=== PATIENT | female | born 1985 | race Asian ===

== ENCOUNTER 2019-12-16 16:43 | Emergency (ER) | payer BC, SELFPAY ==
[2019-12-16 17:01] VITALS: BP 131/62; PULSE 107; RESP 16; TEMP 37.1; O2SAT 99
--- NOTE | 2019-12-16 17:19 | ED.EAR ---
HPI - Ear Problem General Chief complaint: Ear Stated complaint: earpain (L) Time Seen by Provider: 12/16/19 17:00 Source: patient Mode of arrival: ambulatory Limitations: no limitations History of Present Illness HPI Narrative: Patient presents today complaining of left ear pain since this morning. Denies any additional symptoms to include fever, sore throat, cough. Currently rates her pain 8/10. She instilled some peroxide earlier this morning without relief. She has not tried any [id number] medications for pain prior to arrival. MD Complaint: ear pain Related Data Home Medications Medication Instructions Recorded Confirmed No Home Medications 12/16/19 12/16/19 Allergies Allergy/AdvReac Type Severity Reaction Status Date / Time Penicillins Allergy Intermediate Rash Verified 12/16/19 16:55 Review of Systems Review of Systems: Narrative: CONSTITUTIONAL: Denies body aches, fever, chills, or sweats. EYES: Denies visual changes, redness, or discharge. ENT: Denies rhinorrhea, congestion, sore throat. + Left ear pain CARDIOVASCULAR: Denies chest pain, palpitations, or edema. RESPIRATORY: Denies cough or dyspnea. GASTROINTESTINAL: Denies abdominal pain, nausea, vomiting, or diarrhea. GENITOURINARY: Denies dysuria or hematuria. SKIN: Denies rash, itching, or wounds. MUSCULOSKELETAL: Denies back pain, joint pain, or myalgia. NEUROLOGIC: Denies headache, numbness, tingling, or weakness. PSYCH: Denies depression or anxiety. PMFSH Social History Social History Gender identity (if verbalized by the patient): Female Comments At time of signature, I have reviewed and agree with nursing past medical, surgical, social and family history unless otherwise noted. Please see nursing chart for further information. There is no relevant family history pertinent to the presenting complaint Exam Narrative: Exam Narrative: GENERAL: Well-appearing, well-nourished, and in no acute distress. HEAD: Normocephalic, atraumatic. EYES: EOMI. No redness or drainage. Conjunctivae normal. ENT: Mucous membranes pink and moist. Nares clear. No rhinorrhea. Right TM and canal normal. Left TM occluded by cerumen impaction. See procedure note. Throat normal. Uvula midline. NECK: Normal AROM. Supple. No lymphadenopathy. CHEST: No respiratory distress. Clear to auscultation. HEART: Regular rate and rhythm. No murmur appreciated. Normal peripheral pulses. EXTREMITIES: Normal range of motion. No edema. SKIN: Warm, dry, no rash. Capillary refill normal. Normal skin turgor. NEURO: No focal deficits. Alert and oriented x3. Gait steady. PSYCH: Normal affect. No signs of depression or anxiety. Course Course Emergency Course: Patient had some immediate relief of pain once wax was removed. Vital Signs Vital signs: Vital Signs Temperature 98.8 F 12/16/19 17:01 Pulse Rate 107 H 12/16/19 17:01 Respiratory Rate 16 12/16/19 17:01 Blood Pressure 131/62 12/16/19 17:01 Pulse Oximetry 99 12/16/19 17:01 Temperature 98.8 F 12/16/19 17:01 Pulse Rate 107 H 12/16/19 17:01 Respiratory Rate 16 12/16/19 17:01 Blood Pressure 131/62 12/16/19 17:01 Pulse Oximetry 99 12/16/19 17:01 Reviewed. Pt has been instructed to follow up with her PCP regarding her elevated blood pressure today. Procedures Ear Wax Removal Left Ear: Ear Wax Removal Date: 12/16/19 Ear Wax Removal Time: 17:25 Cerumenolytic Used: other (Hydrogen peroxide) Results: Re-examined: cerumen removed completely TM Examination: TM(s) intact, normal appearance Patient Tolerated Procedure: well Complications: no problems Technique: ear canal irrigated and ear canal curetted Medical Decision Making Differential Diagnosis Differential Diagnosis: Otitis media, otitis externa, ruptured TM, serous otitis, eustachian tube dysfunction, cerumen impaction Vital Signs Vital Signs: Vital Signs Temperature 98.8
== END 2019-12-16 17:45 | disposition home or self-care (01) ==
PROVIDERS: Emergency Provider Nurse Practitioner
DX: H61.22 Impacted cerumen, left ear (principal)
CPT/HCPCS: 69210; 99212; G0463

== ENCOUNTER 2020-11-01 01:32 | Emergency (ER) | payer BC, SELFPAY ==
--- NOTE | ~2020-11-01 | XR_ITS ---
EXAMINATION: XR lumbar spine 2-3V DATE: 11/01/2020 02:27 INDICATION: Low back pain post back injury TECHNIQUE: Anteroposterior and lateral views of the lumbar spine, and cone-down lateral view of the l umbosacral junction were obtained. COMPARISON: None. FINDINGS: Minimal lumbar levocurvature. Sagittal alignment is normal. Vertebral body and disc heights are татьяна l. Mild lower lumbar facet osteoarthritis. Sacrum and bilateral sacral iliac joints are normal. IMPRESSION: 1. Minimal lumbar levocurvature with mild lower lumbar facet osteoarthritis. Reviewed, dictated and finalized at location A.
[2020-11-01 01:36] VITALS: BP 112/73; PULSE 73; RESP 16; TEMP 36.2; O2SAT 100
[2020-11-01 03:31] VITALS: BP 105/70; PULSE 53; O2SAT 97
[2020-11-01] MEDS: KETOROLAC 30 MG/ML VIAL (*BKC) IM (03:48)
[2020-11-01] MEDS: HYDROmorphone HCL INJ (*CRX) 1 MG/ML SYR IM (03:50)
[2020-11-01] MEDS: diazePAM INJ (*CRX) 10 MG/2 ML SYRINGE 5 MG IM (03:51)
--- NOTE | 2020-11-01 04:09 | ED.GENADULT ---
HPI - General Adult General Chief complaint: Back Pain/Injury Stated complaint: back pain Time Seen by Provider: 11/01/20 03:22 History of Present Illness HPI narrative: Patient 34-year-old female presents the emergency department with chief complaint of back pain. Patient reports she was lifting weights and started having pain in her back. The patient states that the spasmodic type pain feels like a spasm in the muscles of her back the patient reports that it worsened by movement and improved with rest. Patient denies fever denies dysuria denies sharp pain radiating to the abdomen. Patient denies history of kidney stones Related Data Allergies Allergy/AdvReac Type Severity Reaction Status Date / Time Penicillins Allergy Intermediate Rash Verified 11/01/20 03:27 Review of Systems Review of Systems: A 10 system review of systems was completed on the patient and is negative except for what is stated in the HPI. Nursing and ancillary documentation was reviewed. [facility] Social History Social History Gender identity (if verbalized by the patient): Female Exam Narrative: GENERAL: Well-appearing, well-nourished, and in no acute distress. HEAD: Normocephalic, atraumatic. EYES: PERRLA and EOMI. ENT: Nares clear, no rhinorrhea or epistaxis. Mucous membranes moist. NECK: Supple. CHEST: Clear to auscultation. No respiratory distress. HEART: Regular rate and rhythm. No murmur heard. Normal peripheral pulses. ABDOMEN: Soft, nontender, nondistended, normal active bowel sounds. Back: There is tenderness to palpation in the paraspinous muscles in the midline of the lumbar and low thoracic region of the spine EXTREMITIES: Normal range of motion. No edema. SKIN: Warm, dry, no rash. NEURO: No focal deficits. Alert and oriented x3. PSYCH: Normal mood and affect. Course Course Emergency Course: Plain film x-ray showed no evidence of fracture Vital Signs Vital signs: Vital Signs Temperature 36.2 C L 11/01/20 01:36 Pulse Rate 73 11/01/20 01:36 Respiratory Rate 16 11/01/20 01:36 Blood Pressure 112/73 11/01/20 01:36 Pulse Oximetry 100 11/01/20 01:36 Temperature 36.2 C L 11/01/20 01:36 Pulse Rate 60 08/04/21 05:05 Respiratory Rate 16 11/01/20 05:05 Blood Pressure 100/64 11/01/20 05:05 Pulse Oximetry 100 11/01/20 05:05 Medical Decision Making Vital Signs Vital Signs: Vital Signs Temperature 36.2 C L 11/01/20 01:36 Pulse Rate 73 11/01/20 01:36 Respiratory Rate 16 11/01/20 01:36 Blood Pressure 112/73 11/01/20 01:36 Pulse Oximetry 100 11/01/20 01:36 Temperature 36.2 C L 11/01/20 01:36 Pulse Rate 60 11/01/20 05:05 Respiratory Rate 16 11/01/20 05:05 Blood Pressure 100/64 11/01/20 05:05 Pulse Oximetry 100 11/01/20 05:05 Discharge Plan Discharge Clinical Impression: Back pain Qualifiers: Back pain location: low back pain Chronicity: acute Back pain laterality: bilateral Sciatica presence: without sciatica Qualified Code(s): M54.5 - Low back pain Lumbar strain Qualifiers: Encounter type: initial encounter Qualified Code(s): S39.012A - Strain of muscle, fascia and tendon of lower back, initial encounter Patient Disposition: Home, Self-Care Condition: Stable Instructions: Antibiotic Form, Back Pain (ED) Prescriptions: New methylprednisolone [Medrol (Ender)] 4 mg tablets,dose pack See Rx Instructions .ROUTE .COMPLEX Qty: 21 RF: 0 cyclobenzaprine 10 mg tablet 10 mg PO TID PRN (Reason: muscle spasm) Qty: 21 RF: 0 ibuprofen 800 mg tablet 800 mg PO TID PRN (Reason: pain) Qty: 30 RF: 0 Follow-up/Referrals: [facility] [Primary Care Provider] - Bill Gomez MD [Physician] - Time of Disposition: 05:17
[2020-11-01 05:05] VITALS: BP 100/64; PULSE 60; RESP 16; O2SAT 100
[2020-11-01 05:25] VITALS: BP 114/68; PULSE 63; RESP 16; O2SAT 100
== END 2020-11-01 05:31 | disposition home or self-care (01) ==
PROVIDERS: Emergency Provider Emergency Medicine
DX: S39.012A Strain of muscle, fascia and tendon of lower back, initial encounter (principal); Y93.B3 Activity, free weights; X50.9XXA Other and unspecified overexertion or strenuous movements or postures, initial encounter
CPT/HCPCS: 72100; 96372; 99284; J1170; J1885; J3360

== ENCOUNTER 2022-04-22 15:41 | Emergency (ER) | payer BC, SELFPAY ==
[2022-04-22 15:48] VITALS: BP 105/60; PULSE 70; RESP 16; TEMP 36.7; O2SAT 99
--- NOTE | 2022-04-22 16:02 | ED.URI ---
HPI - URI/Sore Throat General Chief Complaint: Upper Respiratory Infection Stated Complaint: Sore Throat Time Seen by Provider: 04/22/22 16:03 Source: patient, RN notes reviewed and old records reviewed Mode of arrival: ambulatory Limitations: no limitations History of Present Illness HPI Narrative: 36-year-old female presents to the [facility] with complaints of a sore throat since yesterday. Denies any fevers. Pain with swallowing Denies any chest pain or shortness of breath. Treatments prior to arrival: none Related Data Allergies Allergy/AdvReac Type Severity Reaction Status Date / Time Penicillins Allergy Intermediate Rash Verified 04/22/22 15:54 Review of Systems Review of Systems: All systems reviewed & are unremarkable except as noted in HPI and below Constitutional: Constitutional: Reports no additional constitutional complaints Eyes: Eyes: Reports no additional eye complaints ENT: Reports as per HPI and Reports sore throat Cardiovascular: Cardiovascular: Reports no additional cardiovascular complaints, Denies chest pain and Denies dyspnea Respiratory: Respiratory: Reports no additional respiratory complaints, Denies chest congestion, Denies cough and Denies dyspnea Gastrointestinal: Gastrointestinal: Reports no additional gastrointestinal complaints, Denies abdominal pain, Denies nausea and Denies vomiting Musculoskeletal: Musculoskeletal: Reports no additional musculoskeletal complaints Integumentary/Breasts: Skin/Breast: Reports system reviewed and no additional complaints, except as docu Neurologic: Reports system reviewed and no additional complaints, except as documented Psychiatric: Psychiatric: Reports no additional psychiatric complaints Allergic/Immunologic: Allergic/Immunologic: Reports no additional allergic/immunologic complaints PMFSH Social History Social History Gender identity (if verbalized by the patient): Female Comments At the time of my signature, I reviewed and agree with the nursing past medical, surgical, social, and family history. There is no relevant family history pertinent to the patient complaint. Exam Const: General: cooperative, healthy appearing, comfortable, no acute distress, well developed, alert and well nourished Nutritional Appearance: well nourished Orientation/consciousness: patient oriented x3 Limitations: no limitations HENMT: Head: normal to inspection Ears: hearing grossly normal bilaterally and external ears normal Face/Nose/Sinus: Normal external nose present, Normal nares present, Normal nasal mucous membranes and turbinates present and normal facial exam Face and sinus: normal facial exam Mouth: Yes Normal oral and palatal mucosa present, Yes lip normal and Yes moist mucous membranes Throat: uvula midline, abnormal tonsil bilateral erythema and exudates; no hypertrophy and crypts and posterior oropharynx abnormal erythema; no exudates Eyes: General: appearance normal, both eyes and all related structures Alignment and Position: alignment normal Periorbital: periorbital findings normal Conjunctivae: conjunctivae normal Pupils: Equal, round and reactive pupils present EOM: EOMs intact bilaterally Neck: Neck: normal visual inspection, full ROM, no meningeal signs and lymphadenopathy (Some indibulin bilateral) Chest: Chest palpation & inspection: normal inspection of the chest Resp: Effort & Inspection: normal respiratory effort and able to speak in complete sentences Auscultation: clear to auscultation bilaterally, no crackles, no rales, no rhonchi and no wheezes Cardio: Rate: regular rate Rhythm: regular rhythm Back/Spine/Pelvis: Cervical Spine: cervical ROM normal Thoracic/Lumbar Spine: No thoracic spinal tenderness Skin: General skin exam: normal color and no rashes or lesions noted Lesions: no lesions Rashes: no rashes Wounds: no wounds Neuro: General: patient oriented x3, gait no
== END 2022-04-22 16:16 | disposition home or self-care (01) ==
PROVIDERS: Emergency Provider Nurse Practitioner
DX: J02.0 Streptococcal pharyngitis (principal)
CPT/HCPCS: 87880; 99213; G0463

== ENCOUNTER 2022-11-11 13:26 | Emergency (ER) | payer BC, SELFPAY ==
[2022-11-11 13:39] VITALS: BP 104/69; PULSE 77; RESP 16; TEMP 36.8; O2SAT 100
--- NOTE | 2022-11-11 14:00 | ED.URI ---
HPI - URI/Sore Throat General Chief Complaint: Upper Respiratory Infection Stated Complaint: Sore Throat, Chills, Headache Time Seen by Provider: 11/11/22 14:01 Source: patient and RN notes reviewed Mode of arrival: ambulatory Limitations: no limitations History of Present Illness HPI Narrative: 36-year-old female presented for complaint of fatigue, headache, body aches, sinus pressure/congestion, cough, fever/chills. Onset 3 days. Taking DayQuil and NyQuil for symptoms. She denies sick contacts. Denies sob, wheezing, n/v/d. MD elicited complaint: cough Related Data Home Medications Medication Instructions Recorded Confirmed No Home Medications 11/11/22 11/11/22 Allergies Allergy/AdvReac Type Severity Reaction Status Date / Time Penicillins Allergy Intermediate Rash Verified 04/22/22 15:54 Review of Systems Review of Systems: CONSTITUTIONAL: Endorses malaise, chills, sweats, fever EYES: Denies visual changes, redness, or discharge ENT: Reports rhinorrhea, congestion, sinus pain, otalgia, sore throat CARDIOVASCULAR: Denies chest pain, palpitations, edema RESPIRATORY: Reports cough, post nasal drainage. Denies dyspnea GASTROINTESTINAL: Denies abdominal pain, nausea, vomiting, diarrhea endorses decreased appetite SKIN: Denies rash or itching MUSCULOSKELETAL: Endorses myalgia NEUROLOGIC: Endorses headache PMFSH Past Medical History Medical History (Updated 11/11/22 @ 14:12 by Stacey Cisneros APRN) No pertinent past medical history Social History Social History Gender identity (if verbalized by the patient): Female Exam Narrative: GENERAL: Mildly ill-appearing, nontoxic no acute distress. HEAD: Normocephalic EYES: PERRLA, conjunctivae clear ENT: Mucous membranes moist. TMs pearly lora with dull light reflex bilaterally; no tragal tenderness. Oropharynx without lesions or exudate, no drooling, no hoarseness, no trismus, uvula midline. No tripod positioning, muffled voice, soft palate or pharyngeal wall bulging NECK: Supple. No lymphadenopathy CHEST: Clear to auscultation, breath sounds equal. No wheezing, rhonchi, rales, or stridor. No respiratory distress, speaks in full sentences. HEART: Regular rate and rhythm. No murmur heard. SKIN: Warm, dry, no rash. NEURO: Alert and oriented x3. PSYCH: Normal mood and affect Course Course Emergency Course: Patient is aware of diagnosis, understands and agrees to treatment plan. Anticipatory guidance given. Patient agrees to follow-up as directed and is aware of reasons to seek care at the emergency department. Portions of this record may have been created with voice recognition software Level of Care: Express Care Visit Vital Signs Vital signs: Vital Signs Temperature 98.2 F 11/11/22 13:39 Pulse Rate 77 11/11/22 13:39 Respiratory Rate 16 11/11/22 13:39 Blood Pressure 104/69 11/11/22 13:39 Pulse Oximetry 100 11/11/22 13:39 Oxygen Delivery Room Air 11/11/22 13:39 Temperature 98.2 F 11/11/22 13:39 Pulse Rate 77 11/11/22 13:39 Respiratory Rate 16 11/11/22 13:39 Blood Pressure 104/69 11/11/22 13:39 Pulse Oximetry 100 11/11/22 13:39 Oxygen Delivery Room Air 11/11/22 13:39 reviewed MDM - URI/Sore Throat MDM Narrative Medical decision making narrative: Negative strep Positive COVID Discussed physical exam findings and test results. Advised supportive measures and signs/symptoms to go to the ER. Pt is appropriate for outpt treatment and f/u. Differential Diagnosis Differential diagnosis: Likely upper respiratory infection, sinusitis, viral infection, influenza and pharyngitis Lab Data Labs: Strep Screen Presumptive Negative *(Reference Range: Negative)* Discharge Plan Discharge Clinical Impression: COVID-19 Patient Disposition: Home, Self-Care Condition: Stab
== END 2022-11-11 14:17 | disposition home or self-care (01) ==
PROVIDERS: Emergency Provider Nurse Practitioner Family
DX: U07.1 COVID-19 (principal)
CPT/HCPCS: 87081; 87426; 87880; 99213; C9803; G0463

== ENCOUNTER 2023-11-26 09:05 | Emergency (ER) | payer BC, SELFPAY ==
[2023-11-26 09:18] VITALS: BP 109/60; PULSE 64; RESP 16; TEMP 36.5; O2SAT 99
--- NOTE | 2023-11-26 09:21 | ED.URI ---
HPI - URI/Sore Throat General Chief Complaint: Upper Respiratory Infection Stated Complaint: cough,sore throat/strep exp Time Seen by Provider: 11/26/23 09:08 Source: patient Mode of arrival: ambulatory Limitations: no limitations History of Present Illness HPI Narrative: Yessi is a 38 year old female patient presenting to the clinic today with c/o fever, chills, hot flashes, non-productive cough and sore throat. Reports she has had exposure to her son with strep. Highest fever was 101. Also reports that people her work been sick with the flu. She denies any chest pain or shortness of breath. MD elicited complaint: fever, cough, sore throat and nasal congestion Related Data Home Medications Medication Instructions Recorded Confirmed No Home Medications 11/11/22 11/26/23 Allergies Allergy/AdvReac Type Severity Reaction Status Date / Time Penicillins Allergy Intermediate Rash Verified 11/26/23 09:08 Review of Systems Review of Systems: Pertinent positives per HPI. Patient denies any rash, headache, visual changes, dizziness, shortness of breath, chest pain, palpitations, nausea, vomiting, diarrhea, constipation, abdominal pain, or any urinary issues. [facility] Past Medical History Medical History (Updated 11/26/23 @ 09:50 by Bang Ko APRN) No pertinent past medical history Social History Social History Gender identity (if verbalized by the patient): Female Comments At the time of my signature, I reviewed and agree with the nursing past medical, surgical, social, and family history. There is no relevant family history pertinent to the patient complaint. Exam Narrative: General: Well-developed, well nourished, in no apparent distress Head: Normocephalic, atraumatic Eyes: Pupils equally round and reactive to light bilaterally, EOM intact, sclera and conjunctive clear, no discharge, lids normal Ears: TMs intact and clear, ear canals clear, no drainage, grossly hearing normal. Nose: Nares patent, clear nasal discharge, no inflammation, no sinus tenderness. Mouth: Oral pharynx red without lesions or masses, good dentition, MMM. Postnasal drip Neck: Supple, trachea midline, no enlargement of anterior or posterior cervical nodes, no thyroid masses or goiter palpable. Cardio: Regular rate and rhythm, s1 and s2 normal, no murmur appreciated. Resp: Clear to auscultation bilaterally, no rhonchi, rales, wheezing or rubs Course Course Emergency Course: Portions of this record may have been created with voice recognition software. Level of Care: Express Care Visit Vital Signs Vital signs: Vital Signs Temperature 36.5 C 11/26/23 09:18 Pulse Rate 64 11/26/23 09:18 Respiratory Rate 16 11/26/23 09:18 Blood Pressure 109/60 11/26/23 09:18 Pulse Oximetry 99 11/26/23 09:18 Oxygen Delivery Room Air 11/26/23 09:18 Temperature 36.5 C 11/26/23 09:18 Pulse Rate 64 11/26/23 09:18 Respiratory Rate 16 11/26/23 09:18 Blood Pressure 109/60 11/26/23 09:18 Pulse Oximetry 99 11/26/23 09:18 Oxygen Delivery Room Air 11/26/23 09:18 Vital signs reviewed MDM - URI/Sore Throat MDM Narrative Medical decision making narrative: At the time of visit patient is resting comfortably on the exam table. Patient appears to be nontoxic. Labs: COVID, strep, and influenza testing was negative in the clinic today. We will send strep for culture Plan: I suspect patient has URI/pharyngitis/viral syndrome. Supportive measures were discussed with the patient and they voiced understanding discharge instructions and agrees to treatment plan. Return precautions reviewed Differential Diagnosis Differential diagnosis: Likely upper respiratory infection, otitis media, sinusitis, viral infection, bronchitis, influenza, pharyngitis and other (COVID) Discharge Plan Discharge Clinical Impression: Viral infection Upper res
[2023-11-26 11:37] LABS: EDINFLUASCREEN Negative; EDINFLUBSCREEN Negative; EDSTREPNEGPOS1 Negative
== END 2023-11-26 09:55 | disposition home or self-care (01) ==
PROVIDERS: Emergency Provider Nurse Practitioner Family
DX: B34.9 Viral infection, unspecified (principal); J06.9 Acute upper respiratory infection, unspecified; J02.9 Acute pharyngitis, unspecified; Z20.822 Contact with and (suspected) exposure to COVID-19
CPT/HCPCS: 87081; 87426; 87804; 87880; 99213; G0463

== ENCOUNTER 2024-05-11 17:24 | Emergency (ER) | payer BC, SELFPAY ==
--- NOTE | 2024-05-11 17:32 | ED_ITS ---
HPI - URI/Sore Throat General Chief Complaint: Upper Respiratory Infection Stated Complaint: Fever/Headache/Cough Source: patient Mode of arrival: ambulatory Limitations: no limitations History of Present Illness HPI Narrative: Venous is a 38-year-old female patient presenting to the clinic today with complaints of fever, headache, body aches, nausea, sore throat, chills, and cough times 3-4 days. She reports her child had influenza A. Denies any chest pain or shortness of breath. Related Data Home Medications ?Medication ?Instructions ?Recorded ?Confirmed ?Last Taken ?Type No Home Medications 11/11/22 05/11/24 Unknown History Allergies Allergy/AdvReac Type Severity Reaction Status Date / Time Penicillins Allergy Intermediate Rash Verified 05/11/24 17:58 Review of Systems Review of Systems: Pertinent positives per HPI. Patient denies any rash, visual changes, dizziness, shortness of breath, chest pain, palpitations, nausea, vomiting, diarrhea, constipation, abdominal pain, or any urinary issues. [facility] Past Medical History Medical History (Updated 05/11/24 @ 18:24 by Bang Ko APRN) No pertinent past medical history Social History Social History Gender identity (if verbalized by the patient): Female Comments At the time of my signature, I reviewed and agree with the nursing past medical, surgical, social, and family history. There is no relevant family history pertinent to the patient complaint. Exam Narrative: General: Well-developed, well nourished, in no apparent distress Head: Normocephalic, atraumatic Eyes: Pupils equally round and reactive to light bilaterally, EOM intact, sclera and conjunctive clear, no discharge, lids normal Ears: TMs intact and clear, ear canals clear, no drainage, grossly hearing normal. Nose: Nares patent, clear nasal discharge, no inflammation, no sinus tenderness. Mouth: Oral pharynx without lesions or masses, good dentition, MMM. Neck: Supple, trachea midline, no enlargement of anterior or posterior cervical nodes, no thyroid masses or goiter palpable. Cardio: Regular rate and rhythm, s1 and s2 normal, no murmur appreciated. Resp: Clear to auscultation bilaterally, no rhonchi, rales, wheezing or rubs Course Course Emergency Course: Portions of this record may have been created with voice recognition software. Level of Care: Express Care Visit Vital Signs Vital signs: Vital Signs Temperature 37.2 C 05/11/24 17:36 Pulse Rate 81 05/11/24 17:36 Respiratory Rate 16 05/11/24 17:36 Blood Pressure 116/101 H 05/11/24 17:36 Pulse Oximetry 99 05/11/24 17:36 Oxygen Delivery Room Air 05/11/24 17:36 Temperature 37.2 C 05/11/24 17:36 Pulse Rate 81 05/11/24 17:36 Respiratory Rate 16 05/11/24 17:36 Blood Pressure 116/101 H 05/11/24 17:36 Pulse Oximetry 99 05/11/24 17:36 Oxygen Delivery Room Air 05/11/24 17:36 Vital signs reviewed MDM - URI/Sore Throat MDM Narrative Medical decision making narrative: At the time of visit patient is resting comfortably on the exam table. Patient appears to be nontoxic. Labs: Influenza and strep test were negative in the clinic today. We will send strep for culture. Plan: I suspect patient has flu like illness. We will send strep for culture. Supportive measures were discussed with the patient and they voiced understanding discharge instructions and agrees to treatment plan. Return precautions reviewed Differential Diagnosis Differential diagnosis: Likely upper respiratory infection, otitis media, sinusitis, viral infection, bronchitis, influenza, pharyngitis and other (COVID) Lab Data Labs: Lab Results 05/11/24 05/11/24 Range/Units 18:04 18:21 POC Influenza A Ag Negative (Negative) POC Influenza B Ag Negative (Negative) POC Grp A Strep Screen Negative (Negative) Discharge Plan Discharge Clinical Impression: Flu-like symptoms Patient Disposition: Home, Self-Care Condition: Stable Instructions: Antibiotic Form, Pharyngitis (ED), Viral Syndrome (ED), Cold Symptoms (ED) Additional Instructions: Influenza and strep testing is negative in the clinic today. We will send strep for culture May take DayQuil/NyQuil for cold/flu symptoms Increase fluids and stay well hydrated Tylenol/motrin for pain/fever Flonase and OTC antihistamines as directed Vicks vapor rub to open sinuses Sinus rinses for congestion Cepacol spray, cough drops, throat lozenges, warm tea with honey/lemon, gargle salt water to soothe throat BRAT diet for diarrhea Clear liquids x 24 hours then advance as tolerated for nausea/vomiting Go to the ED if you develop a worsening in your condition- high fever not c ontrolled by Tylenol or Motrin, dehydration, weakness, lethargy, shortness of breath, or chest pain. Follow up with your PCP in 3-5 days if symptoms persist. Patient Language: Vietnamese Prescriptions: No Action No Home Medications Follow-up/Referrals: PHYSICIAN,PLUMBER'S HELPER [Primary Care Provider] - Stand Alone Forms: Work/School Release IP Time of Disposition: 18:23 Quality NIHSS Nursing Documentation ED NIHSS nursing documentation: reviewed/agree
[2024-05-11 17:36] VITALS: BP 116/101; PULSE 81; RESP 16; TEMP 37.2; O2SAT 99
[2024-05-11 18:04] LABS: EDINFLUASCREEN Negative (Negative); EDINFLUBSCREEN Negative (Negative)
[2024-05-11 18:24] LABS: EDSTREPNEGPOS1 Negative (Negative)
== END 2024-05-11 18:25 | disposition home or self-care (01) ==
PROVIDERS: Emergency Provider Nurse Practitioner Family
DX: J11.1 Influenza due to unidentified influenza virus with other respiratory manifestations (principal)
CPT/HCPCS: 87081; 87804; 87880; 99213; G0463